=== PATIENT | male | born 1980 | race Caucasian/White ===

== ENCOUNTER 2020-01-04 08:45 | Emergency (ER) | payer MEDICAID, OTHER ==
[~2020-01-04] VITALS: Ht 177.8 cm; Wt 77.3 kg
[~2020-01-04 08:45] MED LIST: DIVA-111 PO; PARO10OR3 PO; QUET50TA PO
[2020-01-04 08:49] VITALS: BP 154/67
[2020-01-04 09:50] LABS: ANION GAP 10 mmol/L (8-16); CALCIUM, TOTAL 9.1 mg/dL (8.8-10.5); CARBON DIOXIDE 29 mmol/L (22-29); CHLORIDE 106 mmol/L (98-107); CREATININE 0.77 mg/dL (0.60-1.30); GLOMERULAR FILTR. RATE CALC > 60 mL/min (>60); GLUCOSE,RANDOM 97 mg/dL (70-110); POTASSIUM 3.7 mmol/L (3.5-5.1); SODIUM SERUM 145 mmol/L (136-145); UREA NITROGEN, BLOOD 6 mg/dL (7-18)
[2020-01-04 09:55] LABS: BASOPHILS % (AUTO) 0.9 % (0.0-2.0); EOSINOPHILS % (AUTO) 0.6 % (1.0-6.0); HEMATOCRIT 44.6 % (41-53); HEMOGLOBIN 15.3 g/dL (13.5-17.5); LYMPHOCYTES # (AUTO) 1.6 K/uL (1.0-4.8); LYMPHOCYTES % (AUTO) 21.6 % (22.0-44.0); MEAN CORPUSCULAR HEMOGLOBIN 30.1 pg (26.0-34.0); MEAN CORPUSCULAR HGB CONC 34.4 G/dL (31.0-37.0); MEAN CORPUSCULAR VOLUME 88 fL (80-100); MONOCYTES # (AUTO) 0.6 K/uL (0.1-1.0); MONOCYTES % (AUTO) 8.6 % (2.0-9.0); NEUTROPHILS # (AUTO) 5.2 K/uL (1.8-7.7); NEUTROPHILS % (AUTO) 68.3 % (40.0-70.0); PLATELET COUNT (AUTO) 212 K/uL (150-450); RED BLOOD CELL COUNT(AUTO) 5.09 MIL/uL (4.50-5.90); RED CELL DISTRIBUTION WIDTH 15.3 % (11.5-14.5)
[2020-01-04 09:56] LABS: ALANINE AMINOTRANSFERASE 39 U/L (12-78); ALBUMIN 3.7 g/dL (3.4-5.0); ALKALINE PHOSPHATASE 112 U/L (46-116); ASPARTATE AMINOTRANSFERASE 68 U/L (15-37); BILIRUBIN,TOTAL 0.5 mg/dL (0.1-1.0); TOTAL PROTEIN, SERUM 7.3 g/dL (6.4-8.2)
[2020-01-04 11:33] LABS: AMPHET/METH SCREEN,URINE NEGATIVE (NEGATIVE); BARBITURATE SCREEN, URINE POSITIVE (NEGATIVE); BENZODIAZEPINES SCREEN,URINE NEGATIVE (NEGATIVE); CANNABINOID SCREEN,URINE POSITIVE (NEGATIVE); COCAINE SCREEN,URINE NEGATIVE (NEGATIVE); METHADONE SCREEN, URINE NEGATIVE (NEGATIVE); OPIATE SCREEN,URINE NEGATIVE (NEGATIVE)
[2020-01-04 11:34] LABS: PHENCYCLIDINE SCREEN,URINE NEGATIVE (NEGATIVE)
== END 2020-01-04 11:38 | disposition home or self-care (01) ==
LOC: EMS 08:45
DX: F31.9 Bipolar disorder, unspecified (principal); F10.129 Alcohol abuse with intoxication, unspecified; F17.210 Nicotine dependence, cigarettes, uncomplicated; F11.90 Opioid use, unspecified, uncomplicated; F12.90 Cannabis use, unspecified, uncomplicated; F15.90 Other stimulant use, unspecified, uncomplicated; Y90.8 Blood alcohol level of 240 mg/100 ml or more
CPT/HCPCS: 36415; 80053; 80307; 85025; 99284; G0480

== ENCOUNTER 2020-02-18 16:35 | Inpatient (IN) | payer MEDICAID ==
[~2020-02-18] VITALS: Ht 172.7 cm; Wt 79.1 kg
[2020-02-18 20:50] LABS: BASOPHILS % (AUTO) 0.7 % (0.0-2.0); EOSINOPHILS % (AUTO) 1.9 % (1.0-6.0); HEMATOCRIT 44.6 % (41-53); LYMPHOCYTES # (AUTO) 1.9 K/uL (1.0-4.8); LYMPHOCYTES % (AUTO) 33.1 % (22.0-44.0); MEAN CORPUSCULAR HEMOGLOBIN 30.6 pg (26.0-34.0); MEAN CORPUSCULAR HGB CONC 33.5 G/dL (31.0-37.0); MEAN CORPUSCULAR VOLUME 91 fL (80-100); MONOCYTES # (AUTO) 0.5 K/uL (0.1-1.0); MONOCYTES % (AUTO) 7.9 % (2.0-9.0); NEUTROPHILS # (AUTO) 3.3 K/uL (1.8-7.7); NEUTROPHILS % (AUTO) 56.4 % (40.0-70.0); PLATELET COUNT (AUTO) 244 K/uL (150-450); RED BLOOD CELL COUNT(AUTO) 4.89 MIL/uL (4.50-5.90)
[2020-02-18 21:01] LABS: ANION GAP 12 mmol/L (8-16); CALCIUM, TOTAL 8.5 mg/dL (8.8-10.5); CARBON DIOXIDE 27 mmol/L (22-29); CHLORIDE 105 mmol/L (98-107); CREATININE 0.74 mg/dL (0.60-1.30); GLOMERULAR FILTR. RATE CALC > 60 mL/min (>60); GLUCOSE,RANDOM 96 mg/dL (70-110); POTASSIUM 3.2 mmol/L (3.5-5.1); SODIUM SERUM 144 mmol/L (136-145); UREA NITROGEN, BLOOD 10 mg/dL (7-18)
[2020-02-18 21:07] LABS: ALANINE AMINOTRANSFERASE 38 U/L (12-78); ALBUMIN 3.5 g/dL (3.4-5.0); ALKALINE PHOSPHATASE 121 U/L (46-116); ASPARTATE AMINOTRANSFERASE 53 U/L (15-37); BILIRUBIN,TOTAL 0.3 mg/dL (0.1-1.0); TOTAL PROTEIN, SERUM 7.1 g/dL (6.4-8.2)
[2020-02-19] VITALS (7 sets, daily range): BP systolic 113–146; BP diastolic 81–95
[2020-02-19 00:18] LABS: COVID AG,FIA SOURCE NASOPHARYNGEAL
[2020-02-19 00:36] LABS: AMPHET/METH SCREEN,URINE POSITIVE (NEGATIVE); BARBITURATE SCREEN, URINE NEGATIVE (NEGATIVE); BENZODIAZEPINES SCREEN,URINE NEGATIVE (NEGATIVE); CANNABINOID SCREEN,URINE POSITIVE (NEGATIVE); COCAINE SCREEN,URINE POSITIVE (NEGATIVE); METHADONE SCREEN, URINE NEGATIVE (NEGATIVE); OPIATE SCREEN,URINE NEGATIVE (NEGATIVE)
[2020-02-19 00:38] LABS: PHENCYCLIDINE SCREEN,URINE NEGATIVE (NEGATIVE)
[2020-02-19] MEDS ORDERED: POTASSIUM CHLORIDE 20 MEQ ER TABLET PO ONE ×2 (01:15→09:15)
[2020-02-19] MEDS ORDERED: ZOLPIDEM TARTRATE 10 MG TABLET PO PRN (01:15)
[2020-02-19] MEDS ORDERED: HALOPERIDOL 5 MG TABLET PO PRN (01:15)
[2020-02-19] MEDS: LORazepam 2 MG TABLET PO PRN (01:45)
[2020-02-19] MEDS ORDERED: INFLUENZA VIRUS VACCINE QVS 2020-21 (6MO+)/PF 60 MCG/0.5 ML SYRINGE IM ONE (05:30)
[2020-02-19] MEDS ORDERED: ACETAMINOPHEN 325 MG TABLET PO PRN (07:15)
[2020-02-19] MEDS ORDERED: ALBUTEROL SULFATE HFA 90 MCG/PUFF 8 GM INHALER IH PRN (07:15)
[2020-02-19] MEDS ORDERED: LOPERAMIDE HCL 2 MG CAPSULE PO PRN (07:15)
[2020-02-19] MEDS ORDERED: DOCUSATE SODIUM 100 MG CAPSULE PO PRN (07:15)
[2020-02-19] MEDS ORDERED: CloNIDine HCL 0.1 MG TABLET PO PRN (07:15)
[2020-02-19] MEDS ORDERED: MAGNESIUM HYDROXIDE SUSPENSION 30 ML UDCUP PO PRN (07:15)
[2020-02-19] MEDS ORDERED: IBUPROFEN 400 MG TABLET PO PRN (07:15)
[2020-02-19] MEDS ORDERED: MAG HYDROX/AL HYDROX/SIMETH ES 30 ML SUSPENSION UDCUP PO PRN (07:15)
[2020-02-19] MEDS ORDERED: ONDANSETRON HCL 4 MG TABLET PO PRN (07:15)
[2020-02-19] MEDS ORDERED: PETROLATUM,WHITE 28 GM JELLY TP PRN (07:15)
[2020-02-19] MEDS ORDERED: NICOTINE 14 MG/24 HOUR PATCH TD PRN (07:15)
[2020-02-19] MEDS ORDERED: GuaiFENesin/D-METHORPHAN [SUGAR-FREE] 200-20MG/10 ML SYRUP UDCUP PO PRN (07:15)
[2020-02-19] MEDS ORDERED: LORazepam 2 MG TABLET PO PRN (13:15)
[2020-02-20] MEDS ORDERED: LORazepam 2 MG TABLET PO PRN (07:00)
[2020-02-20 07:22] LABS: POTASSIUM 4.9 mmol/L (3.5-5.1)
[2020-02-20 07:43] LABS: CHOL/HDL RATIO 1.4 (4.2-7.3)
[2020-02-20] MEDS: LORazepam 2 MG TABLET PO SCH ×4 (08:35→20:16)
[2020-02-20 08:40] VITALS: BP 129/82
[2020-02-20 08:42] VITALS: BP 129/82
[2020-02-20 13:40] VITALS: BP 132/73
[2020-02-20 16:00] VITALS: BP 128/81
[2020-02-20 16:14] VITALS: BP 128/81
[2020-02-21 08:00] VITALS: BP 119/77
[2020-02-21 08:23] VITALS: BP 119/77
[2020-02-21] MEDS: LORazepam 2 MG TABLET PO SCH ×4 (09:07→20:41)
[2020-02-21 16:00] VITALS: BP 115/71
[2020-02-22] MEDS ORDERED: LORazepam 1 MG TABLET PO PRN (07:00)
[2020-02-22 08:00] VITALS: BP 96/68
[2020-02-22] MEDS: LORazepam 1 MG TABLET PO SCH ×4 (10:05→21:00)
[2020-02-22] MEDS: CITALOPRAM HYDROBROMIDE 10 MG TABLET PO SCH (12:27)
[2020-02-22 16:00] VITALS: BP 120/76
[2020-02-22] MEDS: OLANZapine 10 MG TABLET PO SCH (21:00)
[2020-02-23 06:18] VITALS: BP 99/64
[2020-02-23] MEDS ORDERED: LORazepam 1 MG TABLET PO PRN (07:00)
[2020-02-23 08:00] VITALS: BP 120/71
[2020-02-23] MEDS: CITALOPRAM HYDROBROMIDE 10 MG TABLET PO SCH (09:59)
[2020-02-23] MEDS: LORazepam 2 MG TABLET PO PRN (10:00)
[2020-02-23 16:52] VITALS: BP 108/78
[2020-02-23] MEDS: OLANZapine 10 MG TABLET PO SCH (21:39)
[2020-02-24 06:07] VITALS: BP 118/74
[2020-02-24 06:08] VITALS: BP 118/74
[2020-02-24 08:30] VITALS: BP 140/84
[2020-02-24] MEDS: CITALOPRAM HYDROBROMIDE 10 MG TABLET PO SCH (09:11)
[2020-02-24 11:43] VITALS: BP 128/72
[2020-02-24 15:39] LABS: COVID AG,FIA SOURCE NASOPHARYNGEAL
[2020-02-24 16:00] VITALS: BP 132/80
[2020-02-24] MEDS: LORazepam 2 MG TABLET PO PRN (19:06)
[2020-02-25] MEDS ORDERED: NALTREXONE HCL 50 MG TABLET PO SCH (09:00)
== END 2020-02-24 20:15 | disposition short-term general hospital (02) | DRG 753 ==
LOC: EMS 16:35 → 3EI 02-19 01:14
PROVIDERS: ADMIT Psychiatry & Neurology Psychiatry; ATTEND Psychiatry & Neurology Psychiatry
DX: F31.4 Bipolar disorder, current episode depressed, severe, without psychotic features (principal); R45.851 Suicidal ideations; Z91.14 Patient's other noncompliance with medication regimen; U07.1 COVID-19; F17.210 Nicotine dependence, cigarettes, uncomplicated; F19.10 Other psychoactive substance abuse, uncomplicated; E87.6 Hypokalemia; F20.9 Schizophrenia, unspecified; F11.90 Opioid use, unspecified, uncomplicated; F10.20 Alcohol dependence, uncomplicated; Y90.9 Presence of alcohol in blood, level not specified; F15.10 Other stimulant abuse, uncomplicated; F14.10 Cocaine abuse, uncomplicated; E78.5 Hyperlipidemia, unspecified; Z28.21 Immunization not carried out because of patient refusal
CPT/HCPCS: 84132; 87081; 87426; 99291; G0480

== ENCOUNTER 2020-02-24 20:20 | Inpatient (IN) | payer MEDICAID ==
[2020-02-24 21:56] VITALS: BP 132/90
[2020-02-24] MEDS: OLANZapine 10 MG TABLET PO SCH (23:18)
[2020-02-24] MEDS ORDERED: ALBUTEROL SULFATE HFA 90 MCG/PUFF 8 GM INHALER IH PRN (23:30)
[2020-02-24] MEDS ORDERED: CloNIDine HCL 0.1 MG TABLET PO PRN (23:30)
[2020-02-24] MEDS ORDERED: PETROLATUM,WHITE 28 GM JELLY TP PRN (23:30)
[2020-02-24] MEDS ORDERED: DOCUSATE SODIUM 100 MG CAPSULE PO PRN (23:30)
[2020-02-24] MEDS ORDERED: GuaiFENesin/D-METHORPHAN [SUGAR-FREE] 200-20MG/10 ML SYRUP UDCUP PO PRN (23:30)
[2020-02-24] MEDS ORDERED: ACETAMINOPHEN 325 MG TABLET PO PRN (23:30)
[2020-02-24] MEDS ORDERED: IBUPROFEN 400 MG TABLET PO PRN (23:30)
[2020-02-24] MEDS ORDERED: MAGNESIUM HYDROXIDE SUSPENSION 30 ML UDCUP PO PRN (23:30)
[2020-02-24] MEDS ORDERED: MAG HYDROX/AL HYDROX/SIMETH ES 30 ML SUSPENSION UDCUP PO PRN (23:30)
[2020-02-24] MEDS ORDERED: LOPERAMIDE HCL 2 MG CAPSULE PO PRN (23:30)
[2020-02-24] MEDS ORDERED: NICOTINE 14 MG/24 HOUR PATCH TD PRN (23:30)
[2020-02-24 23:54] VITALS: BP 139/80
[2020-02-25] MEDS ORDERED: SODIUM CHLORIDE 0.9% 500 ML IV ONE (02:04)
[2020-02-25 05:00] VITALS: BP 126/72
[2020-02-25 07:14] LABS: BASOPHILS % (AUTO) 0.6 % (0.0-2.0); EOSINOPHILS % (AUTO) 1.3 % (1.0-6.0); HEMATOCRIT 43.3 % (41-53); HEMOGLOBIN 14.7 g/dL (13.5-17.5); LYMPHOCYTES # (AUTO) 1.7 K/uL (1.0-4.8); LYMPHOCYTES % (AUTO) 20.4 % (22.0-44.0); MEAN CORPUSCULAR HEMOGLOBIN 30.9 pg (26.0-34.0); MEAN CORPUSCULAR VOLUME 91 fL (80-100); MONOCYTES # (AUTO) 1.2 K/uL (0.1-1.0); MONOCYTES % (AUTO) 14.9 % (2.0-9.0); NEUTROPHILS # (AUTO) 5.1 K/uL (1.8-7.7); NEUTROPHILS % (AUTO) 62.8 % (40.0-70.0); PLATELET COUNT (AUTO) 239 K/uL (150-450); RED BLOOD CELL COUNT(AUTO) 4.76 MIL/uL (4.50-5.90); RED CELL DISTRIBUTION WIDTH 13.2 % (11.5-14.5)
[2020-02-25 08:11] VITALS: BP 121/73
[2020-02-25] MEDS: CITALOPRAM HYDROBROMIDE 10 MG TABLET PO SCH (09:32)
[2020-02-25] MEDS: NALTREXONE HCL 50 MG TABLET PO SCH (09:32)
[2020-02-25 11:38] LABS: AMPHET/METH SCREEN,URINE NEGATIVE (NEGATIVE); BARBITURATE SCREEN, URINE NEGATIVE (NEGATIVE); BENZODIAZEPINES SCREEN,URINE NEGATIVE (NEGATIVE); CANNABINOID SCREEN,URINE NEGATIVE (NEGATIVE); COCAINE SCREEN,URINE NEGATIVE (NEGATIVE); METHADONE SCREEN, URINE NEGATIVE (NEGATIVE); OPIATE SCREEN,URINE NEGATIVE (NEGATIVE)
[2020-02-25 11:51] LABS: PHENCYCLIDINE SCREEN,URINE NEGATIVE (NEGATIVE)
[2020-02-25 16:06] VITALS: BP 124/78
[2020-02-25 19:30] VITALS: BP 126/78
[2020-02-25] MEDS: OLANZapine 10 MG TABLET PO SCH (19:50)
[2020-02-25 23:39] VITALS: BP 107/79
[2020-02-26 04:22] VITALS: BP 117/72
[2020-02-26 08:18] VITALS: BP 126/70
[2020-02-26] MEDS: NALTREXONE HCL 50 MG TABLET PO SCH (08:29)
[2020-02-26] MEDS: CITALOPRAM HYDROBROMIDE 10 MG TABLET PO SCH (08:29)
[2020-02-26] MEDS ORDERED: OLAN10TA3 PO (13:15)
[2020-02-26] MEDS ORDERED: NALT50TA6 PO (13:15)
[2020-02-26] MEDS ORDERED: CITA10TA99 PO (13:15)
[2020-02-26 15:24] VITALS: BP 127/80
[2020-02-26 19:41] VITALS: BP 125/77
[2020-02-26] MEDS: OLANZapine 10 MG TABLET PO SCH (20:13)
[2020-02-27] MEDS ORDERED: OLANZapine 10 MG TABLET PO SCH
[2020-02-27] MEDS ORDERED: NALTREXONE HCL 50 MG TABLET PO SCH
[2020-02-27] MEDS ORDERED: CITALOPRAM HYDROBROMIDE 10 MG TABLET PO SCH
[2020-02-27 00:17] VITALS: BP 107/71
[2020-02-27 04:43] VITALS: BP 112/64
[2020-02-27 08:19] VITALS: BP 111/78
[2020-02-27] MEDS: CITALOPRAM HYDROBROMIDE 10 MG TABLET PO SCH (09:27)
[2020-02-27] MEDS: NALTREXONE HCL 50 MG TABLET PO SCH (09:27)
[2020-02-27 16:09] VITALS: BP 107/70
== END 2020-02-27 17:55 | disposition home or self-care (01) | DRG 753 ==
LOC: 6N 20:20
PROVIDERS: ADMIT Internal Medicine; ATTEND Internal Medicine
DX: F31.4 Bipolar disorder, current episode depressed, severe, without psychotic features (principal); U07.1 COVID-19; F15.10 Other stimulant abuse, uncomplicated; F14.10 Cocaine abuse, uncomplicated; F10.10 Alcohol abuse, uncomplicated; F19.10 Other psychoactive substance abuse, uncomplicated; R45.851 Suicidal ideations; J98.8 Other specified respiratory disorders
CPT/HCPCS: 80307; J7040

== ENCOUNTER 2021-02-16 14:21 | Emergency (ER) | payer MEDICAID ==
[~2021-02-16] VITALS: Ht 172.7 cm; Wt 74.0 kg
[~2021-02-16 14:21] MED LIST changes: +CITA10TA99 PO; -DIVA-111 PO; +OLAN10 PO; -PARO10OR3 PO; -QUET50TA PO
[2021-02-16 16:50] VITALS: BP 124/76
[2021-02-17 07:07] LABS: HEPATITIS C AB (EIA) <0.1 s/co ratio (0.0-0.9); HIV 1-2 SCREEN 4TH GEN W/RFLX Non Reactive (Non Reactive)
== END 2021-02-16 18:33 | disposition home or self-care (01) ==
LOC: EMS 14:21
DX: F10.10 Alcohol abuse, uncomplicated (principal); Z11.3 Encounter for screening for infections with a predominantly sexual mode of transmission; F31.9 Bipolar disorder, unspecified; F20.9 Schizophrenia, unspecified; F11.90 Opioid use, unspecified, uncomplicated; F12.90 Cannabis use, unspecified, uncomplicated; F15.90 Other stimulant use, unspecified, uncomplicated; F17.210 Nicotine dependence, cigarettes, uncomplicated; Z79.899 Other long term (current) drug therapy; Y90.6 Blood alcohol level of 120-199 mg/100 ml
CPT/HCPCS: 36415; 80074; 86592; 87389; 87491; 87591; 99283; G0480

== ENCOUNTER 2021-03-11 14:48 | Emergency (ER) | payer MEDICAID ==
[~2021-03-11] VITALS: Ht 170.2 cm; Wt 72.7 kg
[2021-03-11 16:43] VITALS: BP 120/81
== END 2021-03-11 17:05 | disposition home or self-care (01) ==
LOC: EMS 14:50
DX: S62.336A Displaced fracture of neck of fifth metacarpal bone, right hand, initial encounter for closed fracture (principal); F10.10 Alcohol abuse, uncomplicated; F31.9 Bipolar disorder, unspecified; X58.XXXA Exposure to other specified factors, initial encounter; Y93.89 Activity, other specified; Y92.89 Other specified places as the place of occurrence of the external cause; Y99.8 Other external cause status; Z59.00 Homelessness unspecified
CPT/HCPCS: 99283

== ENCOUNTER 2021-03-26 20:54 | Inpatient (IN) | payer MEDICAID ==
[~2021-03-26] VITALS: Ht 170.2 cm; Wt 83.9 kg
[2021-03-26 21:31] LABS: BASOPHILS % (AUTO) 0.6 % (0.0-2.0); EOSINOPHILS % (AUTO) 1.2 % (1.0-6.0); HEMATOCRIT 46.1 % (41-53); HEMOGLOBIN 15.8 g/dL (13.5-17.5); LYMPHOCYTES # (AUTO) 2.4 K/uL (1.0-4.8); LYMPHOCYTES % (AUTO) 36.2 % (22.0-44.0); MEAN CORPUSCULAR HEMOGLOBIN 29.3 pg (26.0-34.0); MEAN CORPUSCULAR HGB CONC 34.3 G/dL (31.0-37.0); MEAN CORPUSCULAR VOLUME 86 fL (80-100); MONOCYTES # (AUTO) 0.6 K/uL (0.1-1.0); MONOCYTES % (AUTO) 9.4 % (2.0-9.0); NEUTROPHILS # (AUTO) 3.4 K/uL (1.8-7.7); NEUTROPHILS % (AUTO) 52.6 % (40.0-70.0); PLATELET COUNT (AUTO) 290 K/uL (150-450); RED BLOOD CELL COUNT(AUTO) 5.39 MIL/uL (4.50-5.90); RED CELL DISTRIBUTION WIDTH 12.8 % (11.5-14.5)
[2021-03-26 21:41] LABS: ANION GAP 11 mmol/L (8-16); CALCIUM, TOTAL 9.1 mg/dL (8.8-10.5); CARBON DIOXIDE 27 mmol/L (22-29); CHLORIDE 106 mmol/L (98-107); CREATININE 1.09 mg/dL (0.60-1.30); GLOMERULAR FILTR. RATE CALC > 60 mL/min (>60); GLUCOSE,RANDOM 99 mg/dL (70-110); POTASSIUM 3.7 mmol/L (3.5-5.1); SODIUM SERUM 144 mmol/L (136-145); UREA NITROGEN, BLOOD 15 mg/dL (7-18)
[2021-03-26 21:47] LABS: ALANINE AMINOTRANSFERASE 38 U/L (12-78); ALBUMIN 3.7 g/dL (3.4-5.0); ALKALINE PHOSPHATASE 117 U/L (46-116); ASPARTATE AMINOTRANSFERASE 30 U/L (15-37); BILIRUBIN,TOTAL 0.5 mg/dL (0.1-1.0); TOTAL PROTEIN, SERUM 7.4 g/dL (6.4-8.2)
[2021-03-26] MEDS ORDERED: LORazepam 2 MG TABLET PO ONE (22:00)
[2021-03-26] MEDS ORDERED: OLANZapine 5 MG TABLET PO ONE (22:00)
[2021-03-26] MEDS ORDERED: OLANZapine 5 MG RAPDIS TABLET PO PRN (23:30)
[2021-03-26] MEDS ORDERED: ZOLPIDEM TARTRATE 10 MG TABLET PO PRN (23:30)
[2021-03-26] MEDS ORDERED: LORazepam 2 MG TABLET PO PRN (23:30)
[2021-03-26 23:31] LABS: COVID AG,FIA SOURCE NASOPHARYNGEAL
[2021-03-26 23:46] LABS: AMPHET/METH SCREEN,URINE POSITIVE (NEGATIVE); BARBITURATE SCREEN, URINE NEGATIVE (NEGATIVE); BENZODIAZEPINES SCREEN,URINE NEGATIVE (NEGATIVE); CANNABINOID SCREEN,URINE POSITIVE (NEGATIVE); COCAINE SCREEN,URINE NEGATIVE (NEGATIVE); METHADONE SCREEN, URINE NEGATIVE (NEGATIVE); OPIATE SCREEN,URINE NEGATIVE (NEGATIVE)
[2021-03-26 23:47] LABS: APPEARANCE,URINE CLEAR (CLEAR); BILIRUBIN,URINE NEGATIVE (NEGATIVE); GLUCOSE, URINE (UA) NEGATIVE (NEGATIVE); KETONES,URINE TRACE mg/dL (NEGATIVE); LEUKOCYTE ESTERASE ,URINE NEGATIVE (NEGATIVE); NITRATE,URINE NEGATIVE (NEGATIVE); OCCULT BLOOD,URINE NEGATIVE (NEGATIVE); PH,URINE 5.5 (5.0-8.0); PROTEIN,URINE NEGATIVE (NEGATIVE)
[2021-03-26 23:48] LABS: PHENCYCLIDINE SCREEN,URINE NEGATIVE (NEGATIVE)
[2021-03-27] VITALS (8 sets, daily range): BP systolic 101–139; BP diastolic 67–76
[2021-03-27 00:36] LABS: CHOL/HDL RATIO 1.8 (4.2-7.3); CHOLESTEROL 160 mg/dL (131-200); HDL CHOLESTEROL 88 mg/dL (40-60); LDL CHOL (CALC.) 34 mg/dL (0-130); TRIGLYCERIDES 188 mg/dL (15-150)
[2021-03-27] MEDS ORDERED: INFLUENZA VIRUS VACCINE QVS 2021-22 (6MO+)/PF 60 MCG/0.5 ML SYRINGE IM. ONE (04:45)
[2021-03-27] MEDS ORDERED: LOPERAMIDE HCL 2 MG CAPSULE PO PRN ×2 (09:30)
[2021-03-27] MEDS ORDERED: CYANOCOBALAMIN 1,000 MCG/ML VIAL IM ONE (09:30)
[2021-03-27] MEDS ORDERED: DIAZEPAM 10 MG TABLET PO PRN (09:30)
[2021-03-27] MEDS ORDERED: MAGNESIUM HYDROXIDE SUSPENSION 30 ML UDCUP PO PRN (09:30)
[2021-03-27] MEDS ORDERED: TUBERCULIN, PURIFIED PROTEIN DERIVATIVE 5 TU/0.1 ML SYRINGE ID ONE (09:30)
[2021-03-27] MEDS ORDERED: HydrOXYzine PAMOATE 50 MG CAPSULE PO PRN (09:30)
[2021-03-27] MEDS ORDERED: MAG HYDROX/AL HYDROX/SIMETH ES 30 ML SUSPENSION UDCUP PO PRN (09:30)
[2021-03-27] MEDS ORDERED: PALIPERIDONE PALMITATE 234 MG/1.5 ML SYRINGE IM ONE (09:30)
[2021-03-27] MEDS ORDERED: GuaiFENesin/D-METHORPHAN [SUGAR-FREE] 200-20MG/10 ML SYRUP UDCUP PO PRN (09:30)
[2021-03-27] MEDS ORDERED: ACETAMINOPHEN 325 MG TABLET PO PRN (09:30)
[2021-03-27] MEDS ORDERED: PROMETHAZINE HCL 25 MG TABLET PO PRN (09:30)
[2021-03-27] MEDS: DIVALPROEX SODIUM 500 MG ER TABLET PO SCH ×2 (12:11→17:26)
[2021-03-27] MEDS: THIAMINE 100 MG TABLET PO SCH (17:26)
[2021-03-27] MEDS ORDERED: OLANZapine 5 MG RAPDIS TABLET PO SCH (21:00)
[2021-03-27] MEDS: MELATONIN 5 MG TABLET PO SCH (21:04)
[2021-03-28 03:24] VITALS: BP 124/66
[2021-03-28 06:13] VITALS: BP 102/68
[2021-03-28] MEDS ORDERED: DIAZEPAM 10 MG TABLET PO PRN (07:00)
[2021-03-28] MEDS: MULTIVITAMINS WITH MINERALS, THERAPEUTIC TABLET PO SCH (08:10)
[2021-03-28] MEDS: NALTREXONE HCL 50 MG TABLET PO SCH (08:10)
[2021-03-28] MEDS: FOLIC ACID 1 MG TABLET PO SCH (08:10)
[2021-03-28] MEDS: DIAZEPAM 10 MG TABLET PO SCH ×4 (08:10→20:34)
[2021-03-28] MEDS: OMEGA-3/DHA/EPA/FISH OIL 1,000 MG CAPSULE PO SCH (08:11)
[2021-03-28] MEDS: FLUoxetine HCL 20 MG CAPSULE PO SCH (08:11)
[2021-03-28] MEDS: THIAMINE 100 MG TABLET PO SCH ×2 (08:11→16:31)
[2021-03-28] MEDS: DIVALPROEX SODIUM 500 MG ER TABLET PO SCH ×3 (08:11→16:31)
[2021-03-28 08:15] VITALS: BP 105/86
[2021-03-28 08:52] VITALS: BP 105/86
[2021-03-28 13:30] VITALS: BP 110/76
[2021-03-28 16:13] VITALS: BP 108/73
[2021-03-28] MEDS: MELATONIN 5 MG TABLET PO SCH (20:34)
[2021-03-28] MEDS ORDERED: OLANZapine 5 MG RAPDIS TABLET PO SCH (21:00)
[2021-03-29] VITALS (7 sets, daily range): BP systolic 107–120; BP diastolic 62–91
[2021-03-29 07:58] LABS: HEMOGLOBIN A1C 4.9 % (3.8-5.6)
[2021-03-29 08:15] LABS: CHOL/HDL RATIO 1.9 (4.2-7.3); FREE T4 (FREE THYROXINE) 0.85 ng/dL (0.76-1.46); THYROID STIMULATING HORMONE 0.72 uIU/mL (0.36-3.74)
[2021-03-29] MEDS: DIVALPROEX SODIUM 500 MG ER TABLET PO SCH ×3 (08:23→16:17)
[2021-03-29] MEDS: FLUoxetine HCL 20 MG CAPSULE PO SCH (08:23)
[2021-03-29] MEDS: OMEGA-3/DHA/EPA/FISH OIL 1,000 MG CAPSULE PO SCH (08:23)
[2021-03-29] MEDS: MULTIVITAMINS WITH MINERALS, THERAPEUTIC TABLET PO SCH (08:24)
[2021-03-29] MEDS: FOLIC ACID 1 MG TABLET PO SCH (08:24)
[2021-03-29] MEDS: NALTREXONE HCL 50 MG TABLET PO SCH (08:24)
[2021-03-29] MEDS: DIAZEPAM 10 MG TABLET PO SCH ×4 (08:24→20:23)
[2021-03-29] MEDS: THIAMINE 100 MG TABLET PO SCH ×2 (08:24→16:17)
[2021-03-29] MEDS: MELATONIN 5 MG TABLET PO SCH (20:23)
[2021-03-30 06:07] VITALS: BP 109/65
[2021-03-30 06:08] VITALS: BP 109/65
[2021-03-30] MEDS ORDERED: DIAZEPAM 5 MG TABLET PO PRN (07:00)
[2021-03-30 08:29] VITALS: BP 117/81
[2021-03-30] MEDS: THIAMINE 100 MG TABLET PO SCH ×2 (09:00→16:47)
[2021-03-30] MEDS: FLUoxetine HCL 20 MG CAPSULE PO SCH (09:00)
[2021-03-30] MEDS: DIVALPROEX SODIUM 500 MG ER TABLET PO SCH ×3 (09:00→16:47)
[2021-03-30] MEDS: FOLIC ACID 1 MG TABLET PO SCH (09:00)
[2021-03-30] MEDS: OMEGA-3/DHA/EPA/FISH OIL 1,000 MG CAPSULE PO SCH (09:00)
[2021-03-30] MEDS: NALTREXONE HCL 50 MG TABLET PO SCH (09:01)
[2021-03-30] MEDS: MULTIVITAMINS WITH MINERALS, THERAPEUTIC TABLET PO SCH (09:01)
[2021-03-30] MEDS: DIAZEPAM 5 MG TABLET PO SCH ×4 (09:01→20:59)
[2021-03-30 13:00] VITALS: BP 105/71
[2021-03-30 16:17] VITALS: BP 105/67
[2021-03-30 17:22] VITALS: BP 115/74
[2021-03-30] MEDS: MELATONIN 5 MG TABLET PO SCH (20:59)
[2021-03-31 03:12] VITALS: BP 128/90
[2021-03-31 03:14] VITALS: BP 128/90
[2021-03-31] MEDS ORDERED: DIAZEPAM 5 MG TABLET PO PRN (07:00)
[2021-03-31 08:15] VITALS: BP 115/66
[2021-03-31] MEDS: FLUoxetine HCL 20 MG CAPSULE PO SCH (08:55)
[2021-03-31] MEDS: THIAMINE 100 MG TABLET PO SCH ×2 (08:55→16:29)
[2021-03-31] MEDS: OMEGA-3/DHA/EPA/FISH OIL 1,000 MG CAPSULE PO SCH (08:55)
[2021-03-31] MEDS: DIVALPROEX SODIUM 500 MG ER TABLET PO SCH ×3 (08:55→16:29)
[2021-03-31] MEDS: NALTREXONE HCL 50 MG TABLET PO SCH (08:55)
[2021-03-31] MEDS: FOLIC ACID 1 MG TABLET PO SCH (08:55)
[2021-03-31] MEDS: MULTIVITAMINS WITH MINERALS, THERAPEUTIC TABLET PO SCH (08:55)
[2021-03-31] MEDS ORDERED: PALIPERIDONE PALMITATE 156 MG/ML SYRINGE IM ONE (09:00)
[2021-03-31 16:28] VITALS: BP 124/68
[2021-03-31] MEDS: MELATONIN 5 MG TABLET PO SCH (20:37)
[2021-03-31 23:50] VITALS: BP 113/69
[2021-04-01 08:23] VITALS: BP 124/64
[2021-04-01 08:56] LABS: GLUCOMETER DEV NAME(LOC) POC.BV
[2021-04-01] MEDS: NALTREXONE HCL 50 MG TABLET PO SCH (09:00)
[2021-04-01] MEDS: FLUoxetine HCL 20 MG CAPSULE PO SCH (09:00)
[2021-04-01] MEDS: MULTIVITAMINS WITH MINERALS, THERAPEUTIC TABLET PO SCH (09:00)
[2021-04-01] MEDS: THIAMINE 100 MG TABLET PO SCH ×2 (09:00→16:36)
[2021-04-01] MEDS: OMEGA-3/DHA/EPA/FISH OIL 1,000 MG CAPSULE PO SCH (09:00)
[2021-04-01] MEDS: DIVALPROEX SODIUM 500 MG ER TABLET PO SCH ×3 (09:00→16:36)
[2021-04-01] MEDS: FOLIC ACID 1 MG TABLET PO SCH (09:00)
[2021-04-01] MEDS ORDERED: PETROLATUM,WHITE 5 GM PACKET JELLY TP ONE ×2 (11:49)
[2021-04-01] MEDS: NYSTATIN 30 GM CREAM TP SCH (16:36)
[2021-04-01 16:50] VITALS: BP 114/70
[2021-04-01] MEDS: MELATONIN 5 MG TABLET PO SCH (20:35)
[2021-04-01 23:57] VITALS: BP 119/74
[2021-04-02 08:17] VITALS: BP 127/79
[2021-04-02] MEDS: MULTIVITAMINS WITH MINERALS, THERAPEUTIC TABLET PO SCH (08:29)
[2021-04-02] MEDS: FOLIC ACID 1 MG TABLET PO SCH (08:29)
[2021-04-02] MEDS: NYSTATIN 30 GM CREAM TP SCH ×3 (08:29→16:37)
[2021-04-02] MEDS: THIAMINE 100 MG TABLET PO SCH ×2 (08:29→16:37)
[2021-04-02] MEDS: FLUoxetine HCL 20 MG CAPSULE PO SCH (08:29)
[2021-04-02] MEDS: OMEGA-3/DHA/EPA/FISH OIL 1,000 MG CAPSULE PO SCH (08:29)
[2021-04-02] MEDS: DIVALPROEX SODIUM 500 MG ER TABLET PO SCH ×3 (08:29→16:37)
[2021-04-02] MEDS: NALTREXONE HCL 50 MG TABLET PO SCH (08:30)
[2021-04-02] MEDS ORDERED: DIVA-80 PO ×4 (14:31→16:33)
[2021-04-02] MEDS ORDERED: PALI117D IM ×2 (14:31→16:59)
[2021-04-02] MEDS ORDERED: NALT50TA PO ×2 (14:31→16:36)
[2021-04-02] MEDS ORDERED: MELA5TAB40 PO (14:31)
[2021-04-02] MEDS ORDERED: OMEG-135 PO (14:31)
[2021-04-02] MEDS ORDERED: PROZ20 PO (14:31)
[2021-04-02 16:21] VITALS: BP 149/79
[2021-04-02] MEDS ORDERED: MELA5TAB21 PO (16:32)
[2021-04-02] MEDS ORDERED: FLUO60TA PO (16:34)
[2021-04-02] MEDS ORDERED: FISH1CAP27 PO (16:58)
== END 2021-04-02 17:50 | disposition home or self-care (01) | DRG 750 ==
LOC: EMS 20:57 → B2X 03-27 00:30
PROVIDERS: ADMIT Psychiatry & Neurology Psychiatry; ATTEND Psychiatry & Neurology Psychiatry
DX: F25.0 Schizoaffective disorder, bipolar type (principal); R45.851 Suicidal ideations; Z59.02 Unsheltered homelessness; F25.1 Schizoaffective disorder, depressive type; J44.9 Chronic obstructive pulmonary disease, unspecified; F10.20 Alcohol dependence, uncomplicated; Y90.9 Presence of alcohol in blood, level not specified; Z20.822 Contact with and (suspected) exposure to COVID-19; F32.A Depression, unspecified; F41.9 Anxiety disorder, unspecified; F12.20 Cannabis dependence, uncomplicated; F32.9 Major depressive disorder, single episode, unspecified; Z55.9 Problems related to education and literacy, unspecified; Z63.9 Problem related to primary support group, unspecified; Z65.3 Problems related to other legal circumstances; Z87.891 Personal history of nicotine dependence; Z91.14 Patient's other noncompliance with medication regimen; Z28.9 Immunization not carried out for unspecified reason
CPT/HCPCS: 80053; 80061; 80164; 81003; 83036; 84439; 84443; 85025; 86592; 99285; G0480; J3420; Q9967

== ENCOUNTER 2021-05-02 13:09 | Emergency (ER) | payer MEDICAID ==
[~2021-05-02] VITALS: Ht 172.7 cm; Wt 86.4 kg
[~2021-05-02 13:09] MED LIST changes: -CITA10TA99 PO; +DIVA-80 PO; +FISH1CAP27 PO; +FLUO60TA PO; +MELA5TAB21 PO; +MELA5TAB40 PO; +NALT50TA PO; -OLAN10 PO; +OMEG-108 PO; +PALI117D IM; +PROZ20 PO
[2021-05-02 14:45] VITALS: BP 118/85
== END 2021-05-02 15:32 | disposition home or self-care (01) ==
LOC: EMS 13:14
DX: N39.0 Urinary tract infection, site not specified (principal); F17.210 Nicotine dependence, cigarettes, uncomplicated; Z79.899 Other long term (current) drug therapy
CPT/HCPCS: 99281; 99406; Z7502